=== PATIENT | female | born 1995 | race Hispanic/Latino ===

== ENCOUNTER 2017-01-08 00:52 | Inpatient (IN) | payer MEDICAID ==
[~2017-01-08] VITALS: Ht 152.4 cm; Wt 59.0 kg
[2017-01-08] MEDS ORDERED: Hemorrhage Kit, Post Partum XX ONE (14:35)
[2017-01-08] MEDS ORDERED: Oxytocin 10 Unit/mL Inj IM PRN (14:35)
[2017-01-08] MEDS ORDERED: Methylergonovine 0.2 mg/mL Inj IM PRN (14:35)
[2017-01-08] MEDS ORDERED: Sodium Chloride LOK Flush 10 mL Syringe IVFLUSH PRN (14:35)
[2017-01-08] MEDS ORDERED: Carboprost 250 mCg/mL Inj IM PRN (14:35)
[2017-01-08 14:43] LABS: Mean Corpuscular Volume 80.6 fL (81-100)
[2017-01-08] MEDS ORDERED: Bupivacaine-MPF 0.25% 30 mL Inj ONE (17:09)
[2017-01-08] MEDS ORDERED: Lidocaine 1%-Epi 1:100,000 20 mL Inj ONE (17:09)
--- NOTE | 2017-01-08 17:52 | PCM.HPOB ---
Subjective Date of Service: January 08, 2017 Referring Provider: Admitting Physician: Evi Soliman MD Primary Care Physician: Evi Soliman MD Attending Physician: Evi Soliman MD Chief Complaint term with pruritus History of Present History of Present Illness 21 yrs old at 39 wk 4 d gestational age based on LMP RAJ of 01/11/17, consistent with an 11 wk u/s RAJ, admitted today for labor induction due to mild cholestasis with generalized pruritus. pt continues to have generalized itching started a mo ago; alkaline phosphatase were mildly elevated; other labs , including liver enzymes, bili level, fasting bile acids, were normal; MFM of recommended induction of labor now. Normal care otherwise. Initial exam revealed a long, closed cervix. The case was discussed with Dr. Clancy of OB today; she recommended Cervidil placement. care labs: O+; rubella imm; antibody screen neg; RPR NR; HIV neg; HBsAg neg. GC/CT neg; Quad screen neg; 1 hr GTT normal; GBS neg. OB History: (2), Para (0) Past Medical History Obstetrical History: elective at 11 WGA 2013 Hx Tobacco Use: No Hx Alcohol Use: No Hx Substance Use: No Past Family History Living Arrangement: with Family Review of Systems ROS generalized mild itching; neg otherwise. Medications Home medications vitamin daily; vitamin d3 2000 iu daily. Allergy Coded Allergies: No Known Allergies (Unverified , 01/08/17) Exam Vital Signs normal Exam category 1 tracings. Constitutional: Well-developed, Well-nourished, Normal habitus HEENT: Atraumatic, PERRLA Lungs: Clear to Auscultation Heart: Exam Unremarkable, Regular Rate/Rhythm, Normal S1, Normal S2, No Murmurs /Rubs/Gallops Abdomen: Gravid (vertex by bedside u/s) Extremities: Warm, No Edema Neurological/Psychiatric: Alert, Oriented X3, Cooperative, No Acute Distress Neuro: Grossly Neurologically Intact Labs/Diagnostics Labs Hgb=11.1; wueepxgz=116 Maternal Blood Type: O Hx Rho(D) Immune Globulin: No Group B Strep Results: Negative Rubella: Immune OB Intrapartum Assessment/Plan Assessment term at 39 wk 3 d gestational age; admitted today for induction of labor due to mild cholestasis with generalized pruritus; the case was discussed with Dr. Clancy; will start with Cervidil placement. Evi Soliman MD January 08, 2017 17:52
[2017-01-08] MEDS: Lactated Ringer's 1,000 ML IV PRN ×2 (21:05→23:54)
[2017-01-09] MEDS: fentaNYL-PF 50 mCg/mL 2 mL Inj IVPUSH PRN ×3 (02:33→14:22)
[2017-01-09] MEDS ORDERED: Lactated Ringer's 500 ML IV ONE (06:49)
[2017-01-09] MEDS ORDERED: Lactated Ringer's 1,000 ML IV SCH ×2 (06:49→14:16)
[2017-01-09] MEDS ORDERED: Atropine 1 mg/10 mL (Code) Syringe IVPUSH PRN (06:50)
[2017-01-09] MEDS ORDERED: EPHEDrine Sulfate 50 mg/mL Inj IVPUSH PRN (06:50)
[2017-01-09] MEDS ORDERED: fentaNYL 2 mCg/mL-Bupiv 0.125% 100 ML EPIDURAL SCH (06:50)
[2017-01-09] MEDS: Oxytocin 30 Units/500 mL LR 30 UNITS in IV Premix 1 EACH IV PRN ×2 (07:54→14:25)
--- NOTE | 2017-01-09 09:31 | PCM.HPANE ---
Patient Data Date of Service: January 09, 2017 Surgeon Admitting Provider:Evi Soliman MD Attending Provider:Evi Soliman MD Primary Care Physician:Evi Soliman MD Other Provider:Temi Brown Anesthesia Reason for Visit Induction INDUCTION Ht/WT & BMI Body Mass Index Allergies Coded Allergies: No Known Allergies (Unverified , 01/08/17) Past Anesthesia History Anesthesia History: Denies:: Abnormal Airway, Anesthesia Reactions, Difficult Intubation, Fam Anesthesia Reaction, Fam Malignant Hypertherm, Malignant Hyperthermia Diabetes History Hx Diabetes?: No MRSA MRSA: No Medications Hypertension Medication: No Home Meds Incl Beta Kennedi: No History History of ENT Problems?: No HEENT History: Denies:: Abnormal Airway Cataracts Difficult Intubation Dysphagia Glaucoma Hearing Problem Sinus Problem TMJ Denture Type: None Teeth Condition: Within Normal Limits Hx of Heart Problems?: No Cardiovascular History: Denies:: AICD Abdominal Aortic Aneurism Atrial Fibrillation Cardiac Surgery Chest Pain Congestive Heart Failure Coronary Artery Disease Edema Heart Murmur Hypertension Irregular Heartbeat Pacemaker Peripheral Vascular Rheumatic Fever Thrombophlebitis Valvular Heart Disease Hx of Respiratory Problem?: No Respiratory History: Denies:: Asthma COPD Chest Surgery Cough Dyspnea Emphysema Hemoptysis Oxygen Administration Pneumonia Pulmonary Embolism Tuberculosis Use of C-PAP Machine Use of Inhalers / NEBS Hx Neurologic Problems?: No Neurological History: Denies:: Alzheimer's Disease CVA Dementia Dizziness Headaches Multiple Sclerosis Parkinson's Disease Peripheral Neuropathy Seizures TIA Hx of GI Problems?: No Gastrointestinal History: Denies:: Cirrhosis Diverticulitis Gall Bladder Disease Gastroesphageal Reflux Gastrointestinal Bleeding Heartburn Hepatitis Hiatal Hernia Liver Disease Rectal Bleeding Hx of Problems?: No HX of Peritoneal Dialysis: No Female Hx: Positive for:: Currently Skin History: Denies:: History Skin Disorders? Pressure Ulcers Hx Musculoskeletal Problems?: No Musculoskeletal History: Denies:: Back Injury Degenerative Joint Fibromyalgia Joint Replacement Musculoskeletal Trauma Myasthenia Gravis Osteoarthritis Rheumatoid Arthritis Systemic Lupus Hx of Psycho/Social Problems?: No Psycho Social History: Denies:: Anxiety Bipolar Disorder Hx Depression Suicide Attempt Hx Surgeries?: No Hx Any Other Health Problems?: No Other History: Denies:: Cancer Endocrine Disease Hospitalization Thyroid Disease History Blood Transfusions: Denies:: Accept Blood Products? Blood Transfuse Reaction Blood Transfusions Hx Diabetes: No Hx Alcohol Use: NoHx Substance Use: No Smoking Status: Never Smoker Stop/Bang Treated for Sleep Apnea?: No Do You Have a CPAP Machine?: No S-Snoring: Do You Snore Loudly: No T-Tired: feel tired, fatigued: No O-Obsered: Observed not breath: No P-Blood Pressure: treated: No B- Body Mass Index > 35 kg/m2: No A- Age over 50: No N- Neck Large Circumference: No G- Gender Male: No BERTHA Risk Assessment: Low Risk, <3 Yes Risk Assessment Category Category 1A: Patient has history of documented sleep apnea, and HAS NOT received any narcotic, sedative or anesthesia administration during this stay. Category 1B: Patient has history of documented sleep apnea, and HAS received any narcotic , sedative or anesthesia administration during this stay Category 2: Patient has SUSPECTED Obstructive Sleep Apnea, and HAS received any narcotic , sedative or anesthesia administration during this stay. Category 3: Patient has SUSPECTED Obstructive Sleep Apnea and HAS NOT received narcotic, sedative or anesthesia administration during this stay. Category 4: Outpatient in Procedural Areas with known sleep apnea or who screen positive for High Risk via the STOP/BANG questionnaire. Exam Exam General Appearance: Oriented X3 HEENT/AIRWAY: MP 2 Lungs: Clear to Auscultation Heart: Exam Unremarkable, Regular Rate/Rhythm, Normal S1, Normal S2, No Murmurs /Rubs/Gallops Meds/Labs/Diagnostics Admission Meds Current Medications Dinoprostone (Cervidil Vaginal Insert) 10 mg ONCE ONCE VAGINAL Last administered on 01/08/17 18:15; Start 01/08/17 at 17:30; Stop 01/08/17 at 17:37; Status DC Zolpidem Tartrate 5 mg 5 mg ONCE ONCE PO Last administered on 01/09/17 00:44; Start 01/08/17 at 23:20; Stop 01/08/17 at 23:21; Status DC Lactated Ringer's (Lr) 1,000 ml @ 125 mls/hr Q8H IV Last administered on 07:49; Start 01/09/17 at 06:49; Stop 01/10/17 at 06:50 Labs Test 01/08/17 13:40 White Blood Count 9.5th/mm3 (3.8-10.1) Red Blood Count 4.27mil/mm3 (3.90-5.20) Hemoglobin 11.1g/dL (12.0-15.6) Hematocrit 34.4% (35.0-46.0) Mean Corpuscular Volume 80.6fL (81-100) Mean Corpuscular Hemoglobin 26.0pg (27.0-35.0) Mean Corpuscular Hemoglobin Concent 32.3% (32.0-37.0) Red Cell Distribution Width 15.1% (12.3-15.4) Platelet Count 370bil/L (150-400) Plan Impression Patient chart reviewed, patient interviewed and anesthestic plan with risks, benefits, and alternatives discussed, and informed consent obtained. ASA Physical Status: ASA1 Normal Healthy Anesthetic Plan: SAB Bene/Risks/Altern/Consents: Yes HP Complete Prior to Induction: Yes Blanco Shah MD January 09, 2017 09:31
[2017-01-09] MEDS ORDERED: Carboprost 250 mCg/mL Inj IM PRN (14:20)
[2017-01-09] MEDS ORDERED: Hemorrhage Kit, Post Partum XX ONE (14:20)
[2017-01-09] MEDS ORDERED: Methylergonovine 0.2 mg/mL Inj IM PRN (14:20)
[2017-01-09] MEDS ORDERED: Oxytocin 30 Units/500 mL LR 30 UNITS in IV Premix 1 EACH IV PRN (14:20)
[2017-01-09] MEDS ORDERED: LANOlin HPA 7 Gm Ointment TOPICAL PRN (14:20)
[2017-01-09] MEDS ORDERED: Witch Hazel-Glycerin Pads TOPICAL PRN (14:20)
[2017-01-09] MEDS ORDERED: Oxytocin 10 Unit/mL Inj IM PRN (14:20)
[2017-01-09] MEDS ORDERED: HYDROcodone-APAP 5-325 mg Tablet PO PRN (14:20)
[2017-01-09] MEDS ORDERED: Benzocaine (Dermoplast) 20% 60 Gm Spray TOPICAL PRN (14:20)
--- NOTE | 2017-01-09 14:29 | PCM.OBVAG ---
Vaginal Delivery Date of Service January 09, 2017 Pre Operative Diagnosis Pre Operative Diagnosis term ; cholestasis requiring induction of labor. Post Operative Diagnosis Post Operative Diagnosis Normal vaginal delivery after induction of labor; resolving cholestasis. Procedure Procedure: 21 yrs old, now , s/p normal vaginal delivery at 39 wk 5 d gestational age after induction of labor started the day before. Cervidil was placed last night around last night, and remove ~5 this morning once contractions started. AROM at 11:40, produced clear fluid; dilation completed at 11:50; delivery at 13:24, head position: CELINA; Apg=8/8; ia=3480 g. Placenta delivered at 13:40, which was intact, with a 3-v cord. Second degree complicated tears were repaired by Dr. Antony; please read her note for details. Estimated blood loss: 350 ml. Both the mother and the remained in stable conditions after the delivery. Burglar Alarm Assembler/Shipping And Receiving Coordinator Provider and Shipping And Receiving Coordinator: Dr. Soliman did the delivery, with the help of the nursing staff; Dr. Antony repaired the vaginal and perineal tears. Indication for Procedure Induction: Active labor, Induction of labor, AROM, Progressed normally through labor Findings Obstetrical Findings: Sherrill (Female), Cord (3 Vessel), Weight ( 3415 grams), 1 minute (8), 5 minutes (9), Placenta (Intact/Normal) Analgesia/Medications Obstetrical Anesthesia: Epidural Blood Loss & Administration Estimated Blood Loss: 350 Blood Admin during procedure: No Post Procedure Plan Post delivery Condition: Mom stable, Baby stable to nursery Evi Soliman MD January 09, 2017 14:29
--- NOTE | 2017-01-09 15:45 | OP ---
[address] [address] OPERATIVE REPORT PATIENT: ANUP BENNETT : 1995 MR#: [id number] ADMIT: 01/08/2017 JOB ID: [id number] DATE OF SURGERY: 01/09/2017 SURGEON: Titi Antony MD. PREOPERATIVE DIAGNOSIS(ES): A 21-year-old, 2, para 1, status post spontaneous vaginal delivery with Dr. Soliman, with multiple perineal and labial lacerations. I was called in by the obstetrics provider for repairs. POSTOPERATIVE DIAGNOSIS(ES): 1. Second-degree perineal laceration at 6 o'clock position. 2. Right labial laceration. 3. Left labial laceration with vaginal extension. ANESTHESIA: Epidural plus local with 1% lidocaine with epinephrine. Total of 10 cc injected. COMPLICATIONS: None. ESTIMATED BLOOD LOSS: 80 cc. PROCEDURE: Perineum prepped with Betadine solution. All lacerations examined and found to be second-degree perineal laceration at 6 o'clock position, confirmed to be second-degree by rectal exam as well, and bilateral labial lacerations, with a left labial laceration having vaginal extension. One percent lidocaine with epinephrine was injected for local analgesia, both sides. A- 2-0 Vicryl was used to repair the second-degree perineal laceration in a two- layer fashion, B- The right labial laceration was repaired with 3-0 Vicryl suture in a continuous fashion, C- The left labial laceration was repaired with 3-0 Vicryl suture. The repair continued to include the vaginal extension. Good hemostasis assured. Firm uterine fundus at the end of the repairs. Patient tolerated the repair well. Sponge, needle, and instrument counts were correct x2. Mom and baby recovering in a stable condition in labor and delivery room. Inspection of the placenta revealed intact placenta with central cord insertion. MTDD
[2017-01-09] MEDS: Ascorbic Acid 500 mg Tablet PO SCH (17:30)
[2017-01-10 07:27] LABS: Mean Corpuscular Volume 81.3 fL (81-100)
[2017-01-10] MEDS: Ascorbic Acid 500 mg Tablet PO SCH (07:28)
--- NOTE | 2017-01-10 15:49 | PCM.DIOB ---
Obstetrical Disch Instruction Date of Service: January 10, 2017 Dates of Hospitalization Date of Hospital Admission January 08, 2017 at 12:57 Providers Admitting Physician: Evi Soliman MD Primary Care Physician: Evi Soliman MD Attending Physician: Evi Soliman MD Diet Discharge Diet: No restrictions Activity Discharge Activity-General: Pelvic Rest for 6 weeks, Balance rest and activity Dressing and Incisional Care Hygiene: January shower, Perineal care, Sitz bath, Dermoplast spray, Witch Constanza pads, Ice Additional Instructions Discharge Instructions vitamins, iron, DSS, ibuprofen all sent electronically to pt's outpatient pharmacy by provider through outpatient electronic medical record Follow Up Plan Follow-up Provider (F9): Evi Soliman MD Follow-up appointment: Weeks (2) Call your provider for: Fever or Chills, Shortness of breath, Heavy vaginal bleeding (swollen, painful leg), Epigastric pain, Excessive constipation, Vaginal discomfort, Red painful breasts Frandy Fang MD January 10, 2017 15:49
[2017-01-10 16:00] VITALS: BP 98/52; PULSE 71; RESP 16
--- NOTE | 2017-01-12 16:54 | DIS ---
[address] [address] DISCHARGE SUMMARY PATIENT: ANUP BENNETT : 1995 MR#: [id number] ADMIT: 01/08/2017 JOB ID: [id number] DIS: 01/10/2017 ADMIT DIAGNOSES: 1. G2 PO at term, induction for mild cholestasis with generalized pruritis DISCHARGE DIAGNOSES: 1. G2 now P1, status-post . 2. status-post perineal and vaginal laceration repairs 3. Anemia CONSULTATIONS: During the hospitalization included Dr. Titi Antony, obstetric, and Dr. Blanco Shah, anesthesia. HOSPITAL COURSE: For details of admission, please see H and P by Dr. Soliman as well as delivery note by Dr. Soliman. Patient delivered vaginally after induction for mild cholestasis with generalized pruritus. Liver function testing including bile acids was normal. The patient induced with Cervidil, then went into active labor. Epidural on per anesthesia. Complex vaginal perineal tears present after delivery repaired by Dr. Antony. patient did well. She was eating, ambulating, with normal bowel and bladder function. She was breast feeding and quite engaged in doing that. Pain was well controlled. Lochia normal. OBJECTIVE: On day of discharge, patient's vital signs were stable. She was afebrile. She is in no acute distress. Pleasant, cooperative. Cardiovascular: Regular rate and rhythm. S1, S2. No murmurs, coughs or rubs. Lungs clear to auscultation without any crackles, rhonchi, or wheezes. Abdomen soft, nontender. Uterus is midline, soft, firms with massage at umbilicus. Lower extremities without edema. hematocrit shows is 26.9 with normal platelets. Elevated white count 14.0. DISCHARGE INSTRUCTIONS: Patient is discharged home. vitamins, iron, docusate, and ibuprofen all sent electronically to patient's outpatient pharmacy. Usual complications of the peripartum period were reviewed with the patient, as well as how to access care and manage those when those occur. Follow up will be with Dr. Soliman in two weeks. [facility], [place]
== END 2017-01-10 17:10 | disposition home or self-care (01) | DRG 560 ==
LOC: FBC 12:57
PROVIDERS: ADMIT Family Medicine; ATTEND Family Medicine
PROC: 3E0P7GC Introduction of Other Therapeutic Substance into Female Reproductive, Via Natural or Artificial Opening (ICD-10-PCS; 2017-01-08)
PROC: 10E0XZZ Delivery of Products of Conception, External Approach (ICD-10-PCS; principal; 2017-01-09)
PROC: 0KQM0ZZ Repair Perineum Muscle, Open Approach (ICD-10-PCS; 2017-01-09)
PROC: 10907ZC Drainage of Amniotic Fluid, Therapeutic from Products of Conception, Via Natural or Artificial Opening (ICD-10-PCS; 2017-01-09)
DX: O26.62 Liver and biliary tract disorders in childbirth (principal); K83.1 Obstruction of bile duct; Z3A.39 39 weeks gestation of pregnancy; Z37.0 Single live birth; O70.1 Second degree perineal laceration during delivery